=== PATIENT | female | born 1980 | race Caucasian/White ===

== ENCOUNTER → 2019-10-24 11:59 | Outpatient (BNVA) | payer BC, SELFPAY | PROVIDERS: Visit Provider Nurse Practitioner Women's Health | DX: Z39.2 Encounter for routine postpartum follow-up (principal); Z30.011 Encounter for initial prescription of contraceptive pills; O24.429 Gestational diabetes mellitus in childbirth, unspecified control | CPT/HCPCS: 36415; 82947 ==

== ENCOUNTER → 2021-01-27 08:02 | Outpatient (BNVA) | payer BC, SELFPAY | PROVIDERS: PCP Nurse Practitioner Family; Visit Provider Obstetrics & Gynecology | DX: N93.9 Abnormal uterine and vaginal bleeding, unspecified (principal); O24.919 Unspecified diabetes mellitus in pregnancy, unspecified trimester; Z30.9 Encounter for contraceptive management, unspecified; Z80.0 Family history of malignant neoplasm of digestive organs | CPT/HCPCS: 80061; 83036 ==

== ENCOUNTER → 2021-03-12 09:05 | Outpatient (BNVA) | payer BC, SELFPAY | PROVIDERS: PCP Nurse Practitioner Family; Visit Provider Surgery | DX: Z11.52 Encounter for screening for COVID-19 (principal); Z20.822 Contact with and (suspected) exposure to COVID-19; Z01.812 Encounter for preprocedural laboratory examination | CPT/HCPCS: 87635 ==

== ENCOUNTER 2021-03-18 09:16 | Day surgery (SDC) | payer BC, SELFPAY ==
[2021-03-16 15:30] VITALS: BMI 29.7
--- NOTE | 2021-03-18 09:48 | P.ANESASSM_ITS ---
Pre-Anesthetic Assessment Pre-Anesthetic Assessment: Height/Weight: Height 1.7 m Weight 86.183 kg Proposed Procedure: Operation Date: 03/18/21 10:45 Proposed Procedures p Colonoscopy 26445 z80.0(Not Applicable) - Marcelo Pollack MD Was Beta Emelina taken within 24 hours: N/A Was Clonidine taken within 24 hours: N/A Social: Social History: No alcohol and No tobacco Exam: Pre-Anes Outpt Exam: alert, oriented x 3, clear to auscultation bilaterally and regular rate & rhythm Airway: Submandibular: WNL Cervical ROM: WNL MP: 2 Dentition: Full History/ROS: No significant history except as noted Anesthetic Plan: ASA status: 1 Anesthesia: MAC Risk of > 500 ml blood loss (7ml/kg in children): No PFSH Anesthesia PFSH: Surgical History S/P appendectomy Laparoscopic appendectomy performed by Dr. Pollack on 08/31/2017 at [facility] S/P section 09/06/2019---Primary LTCS. Diagnosis: Cephalopelvic disproportion with contracted inlet. Performed by Dr. Hemanth Rice at [facility] in [place], [place]. Confirmed low transverse incision with 2 layer closure. S/P exploratory laparotomy 2005---Scope procedure converted to open due to ovarian cyst-- and had bleeding She underwent an exploratory laparotomy via a midline infraumbilical vertical incision. She was told that she had a bleeding ovarian cyst and that the cyst was removed. She does not know any other details of surgery. This was done at [facility] in [place]. Family History Grandfather Colon cancer maternal Mother Colon cancer diagnosed at age 45 Grandmother Hypertension maternal Heart disease maternal Diabetes maternal Denies family history of Ovarian cancer Hyperlipidemia Breast cancer Uterine cancer Thyroid condition Stroke Social History Smoking and tobacco status: former smoker Alcohol intake: current Data Anesthesia Cardiac Studies: No Data to Display
[2021-03-18 10:18] VITALS: BP 124/90; PULSE 89; RESP 18; TEMP 37.2; O2SAT 97
[2021-03-18] MEDS: sodium chloride 0.9% 1,000 ML 30 ML IV (10:37)
--- NOTE | 2021-03-18 11:31 | W.PM.OPSUD ---
Surgery/Procedure H&P Update DATE OF PROCEDURE: March 18, 2021 DATE H&P PERFORMED: 02/19/21 H&P UPDATE INFORMATION: I have reviewed H&P completed within last 30 days, I have examined patient prior to procedure and No changes to prior documentation PREOP DIAGNOSIS: screening colonoscopy PLANNED PROCEDURE: Operation Date: 03/18/21 10:45 Proposed Procedures p Colonoscopy 98651 z80.0(Not Applicable) - Marcelo Pollack MD
[2021-03-18 11:58] VITALS: BP 121/94; PULSE 95; RESP 18; TEMP 36.6; O2SAT 98
[2021-03-18 12:11] VITALS: BP 118/86; PULSE 87; RESP 18; TEMP 36.6; O2SAT 96
--- NOTE | 2021-03-18 14:51 | ANE.PACU2 ---
Inpatient post-anesthesia follow up: Airway intact: Yes Vital signs: Temperature 97.9 F Pulse Rate 87 Respiratory Rate 18 Blood Pressure 118/86 Pulse Oximetry 96 Oxygen Delivery Me thod Room Air Oxygen Flow Rate Fraction of Inspir ed Oxygen Hydration adequate: Yes Nausea and vomiting: No Pain level: 1 Mental status: Baseline
== END 2021-03-18 12:20 | disposition home or self-care (01) ==
PROVIDERS: PCP Nurse Practitioner Family; Visit Provider Surgery
PROC: 0DJD8ZZ Inspection of Lower Intestinal Tract, Via Natural or Artificial Opening Endoscopic (ICD-10-PCS; CPT 45378; principal; 2021-03-18 10:45)
DX: Z12.11 Encounter for screening for malignant neoplasm of colon (principal); Z87.891 Personal history of nicotine dependence; Z80.0 Family history of malignant neoplasm of digestive organs
CPT/HCPCS: 45378; 96360; 96361; J2704; J7030

== ENCOUNTER → 2022-09-05 13:27 | Outpatient (BNVA) | payer BC, SELFPAY | PROVIDERS: PCP Nurse Practitioner Family; Visit Provider Nurse Practitioner Family | DX: R05.9 Cough, unspecified (principal) | CPT/HCPCS: 87400 ==

== ENCOUNTER → 2023-01-25 10:25 | Outpatient (BNVA) | payer OTHER, SELFPAY | PROVIDERS: PCP Family Medicine; Visit Provider Family Medicine | DX: K21.9 Gastro-esophageal reflux disease without esophagitis (principal); Z76.89 Persons encountering health services in other specified circumstances; Z86.32 Personal history of gestational diabetes | CPT/HCPCS: 80053; 80061; 83036; 84443; 85025 ==

== ENCOUNTER 2023-03-03 08:54 | Outpatient (CLI) | payer OTHER, SELFPAY ==
--- NOTE | 2023-03-03 09:16 | MM_ITS ---
WS: [id number] SCREENING DIGITAL TOMOSYNTHESIS MAMMOGRAM WITH CAD HISTORY: Z12.39 - Encounter for other screening for malignant neoplasm... COMPARISON: None available. Bilateral CC and MLO with tomosynthesis views submitted. Synthetic mammography reviewed. Computer aid ed detection analyzed. Breast composition: There are scattered areas of fibroglandular density. No suspicious masses, microc alcifications or architectural distortion. MM/[place] [id number] IMPRESSION: BI-RADS: 1-Negative FOLLOW UP: 1 Year Follow-up
== END 2023-03-03 08:55 | disposition home or self-care (01) ==
PROVIDERS: PCP Family Medicine; Visit Provider Nurse Practitioner Women's Health
DX: Z12.31 Encounter for screening mammogram for malignant neoplasm of breast (principal)
CPT/HCPCS: 77063; 77067

== ENCOUNTER 2023-12-23 18:32 | Emergency (ER) | payer OTHER, SELFPAY ==
[2023-12-23 18:41] VITALS: BP 179/119; PULSE 90; RESP 17; TEMP 36.6; O2SAT 98
--- NOTE | 2023-12-23 18:47 | XRR_ITS ---
PROCEDURE INFORMATION: Exam: XR Chest Exam date and time: 12/23/2023 6:58 PM Age: 43 years old Clinical indication: Other: Hypertensive; Additional info: HTN TECHNIQUE: Imaging protocol: Radiologic exam of the chest. Views: 1 view. COMPARISON: CT abdomen pelvis w con* [id number] 08/30/2017 11:54 PM FINDINGS: Lungs: Unremarkable. No consolidation. Pleural spaces: Unremarkable. No pleural effusion. No pneumothorax. Heart/Mediastinum: Unremarkable. No cardiomegaly. Bones/joints: Unremarkable. XR/XR chest 1V portable [id number] IMPRESSION: No acute findings.
--- NOTE | 2023-12-23 18:47 | ECG_ITS ---
[facility] Test Date: 2023-12-23 Pat Name: Deborah Brasher Department: Room: Gender: Female Assistant Case Manager: : 1980 Requested By: Shanti Harrington Order Number: [id number] Rodolfo MD: Johan Whitfield M.D. Measurements Intervals [place] Rate: 82 P: 45 CT: 153 QRS: 40 QRSD: 89 T: 45 QT: 335 QTc: 392 Interpretive Statements SINUS RHYTHM No previous ECG available for comparison Electronically Signed On 12-24-2023 10:23:48 CDT by Johan Whitfield M.D. [id number]
--- NOTE | 2023-12-23 18:51 | ED_ITS ---
HPI - General Adult 2 General: Chief complaint: General Medical Stated complaint: High BP Time Seen by Provider: 12/23/23 18:46 Source: patient Mode of arrival: ambulatory Limitations: no limitations History of Present Illness: 43-year-old female states she has been h aving hypertension for the last 3 to 4 days and became very stressed about it she is seen yesterday at urgent care started on HCTZ but states her blood pressure been running in the 170s today she has an appointment with her PCP next week she denies any headache or any chest pain currently. No previous history of high blood pressure PFS ED 2 PFSH: Medical History GERD (gastroesophageal reflux disease) On medication No pertinent past medical history Denies diabetes, asthma, hypertension, seizures, DVT/PE PCP: Dr. aMgaña Surgical History Status post colonoscopy (03/18/21) normal S/P appendectomy Laparoscopic appendectomy performed by Dr. Pollack on 08/31/2017 at [facility] S/P exploratory laparotomy 2005---Scope procedure converted to open due to ovarian cyst-- and had bleeding She underwent an exploratory laparotomy via a midline infraumbilical vertical incision. She was told that she had a bleeding ovarian cyst and that the cyst was removed. She does not know any other details of surgery. This was done at [facility]. S/P section 09/06/2019---Primary LTCS. Diagnosis: Cephalopelvic disproportion with contracted inlet. Performed by Dr. Hemanth Rice at [facility] in [place], [place]. Confirmed low transverse incision with 2 layer closure. Family History Grandfather Colon cancer maternal, age at diagnosis unknown Mother Colon cancer diagnosed at age 45 Grandmother Hypertension maternal Heart disease maternal Diabetes maternal Stroke maternal Denies family history of Ovarian cancer Hyperlipidemia Breast cancer Uterine cancer Thyroid disease Social History Smoking and tobacco/nicotine status: former use of tobacco/nicotine Second hand smoke exposure: No Alcohol intake: current Alcohol intake frequency: holidays/special occasions only Substance/Drug Use: never Adopted: No Caregiver/support person: No Lives independently: Yes service: No Current occupational status: employed Current occupation: [employer] Current occupational exposures/hazards: No Pets and animals: No Sexually active: Yes Do you think of yourself as: Straight/Heterosexual Current gender identity: Female Physical Exam 2 Const: COMMON NORMALS: no acute distress, patient oriented x3 and healthy appearing HENMT: COMMON NORMALS: normocephalic and atraumatic HEAD & SCALP: n ormocephalic and atraumatic Eye: COMMON NORMALS: Equal, round and reactive pupils present and EOMs intact bilaterally PUPIL: Yes Equal, round and reactive pupils present Neck/C-Spine: COMMON NORMALS: full ROM and supple Chest: COMMONS NORMALS: normal inspection of the chest Resp: COMMON NORMALS: normal respiratory effort Cardio: COMMON NORMALS: regular rate, regular rhythm and No murmurs present (Cardio) RATE: regular rate RHYTHM: regular rhythm GI: COMMON NORMALS: Normal to inspection, nondistended, normoactive bowel sounds present, Soft to palpation, non-tender and no masses PALPATION: Yes Soft to palpation Extremity: COMMON NORMALS: normal to inspection and full ROM Neuro: COMMON NORMALS: patient oriented x3, moves all extremities and no focal motor deficits Psych: COMMON NORMALS: mental status grossly normal, Normal thought process present and cooperative THOUGHT PROCESS: Normal thought process present Skin: COMMON NORMALS: no rashes or lesions noted and no wounds GENERAL SKIN EXAM: no rashes or lesions noted Course 2 Vital Signs: Vital signs: Vital Signs Temperature 97.8 F 12/23/23 18:41 Pulse Rate 87 12/23/23 20:38 Respiratory Rate 16 12/23/23 20:38 Blood Pressure 141/97 12/23/23 20:38 Pulse Oximetry 97 12/23/23 20:38 [facility] - General Adult Medical Decision Making Patient presents here with hypertension her blood pressure here is improved we will start her on metoprolol she is follow-up with PCP next week as scheduled return if worsening. Medical Records I reviewed the patient's medical records. Lab Data I reviewed the patient's lab results. 12/23/23 19:06 12/23/23 19:06 Radiology Impressions Chest X-Ray 12/23/23 18:47 IMPRESSION: No acute findings. Laboratory Results WBC 8.97 10^3/uL (3.29-11.43) 12/23/23 19:06 RBC 5.23 10^6/uL (3.85-5.65) 12/23/23 19:06 Hgb 15.30 g/dL (11.27-16.99) 12/23/23 19:06 Hct 46.9 % (36-47) 12/23/23 19:06 MCV 89.7 fl (85-98) 12/23/23 19:06 MCH 29.3 pg (27-33) 12/23/23 19:06 MCHC 32.6 g/dL (30-55) 12/23/23 19:06 RDW 12.6 % (12.1-15.1) 12/23/23 19:06 Plt Count 393 10^3/cmm (157-399) 12/23/23 19:06 MPV 9.5 fL (7.4-10.4) 12/23/23 19:06 Neut % (Auto) 62.7 % 12/23/23 19:06 Lymph % (Auto) 28.0 % 12/23/23 19:06 [place] % (Auto) 7.6 % 12/23/23 19:06 Eos % (Auto) 1.0 % 12/23/23 19:06 Baso % (Auto) 0.6 % 12/23/23 19:06 Neut # (Auto) 5.63 10^3/uL (1.8-7.7) 12/23/23 19:06 Lymph # (Auto) 2.5 10^3/uL (0.8-4.8) 12/23/23 19:06 [place] # (Auto) 0.7 10^3/uL (0.2-0.9) 12/23/23 19:06 Eos # (Auto) 0.1 10^3/uL (0.0-0.8) 12/23/23 19:06 Baso # (Auto) 0.1 10^3/uL (0.0-0.1) 12/23/23 19:06 Nucleated RBC % (auto) 0 % 12/23/23 19:06 Nucleated RBCs # 0.0 /100WBC 12/23/23 19:06 Sodium 135 mmol/L (136-145) L 12/23/23 19:06 Potassium 3.8 mmol/L (3.5-5.1) 12/23/23 19:06 Chloride 98 mmol/L (98-107) 12/23/23 19:06 Carbon Dioxide 23 mmol/L (22-29) 12/23/23 19:06 Anion Gap 17.8 (5-19) 12/23/23 19:06 BUN 11 mg/dL (6-20) 12/23/23 19:06 Creatinine 0.6 mg/dL (0.5-0.9) 12/23/23 19:06 GFR Calculation 110.2 mL/min (90-130) 12/23/23 19:06 Glucose 124 mg/dL (65-115) H 12/23/23 19:06 Calculated Osmolality 281 mOsm/kg (285-295) L 12/23/23 19:06 Calcium 9.8 mg/dL (8.5-10.5) 12/23/23 19:06 Total Bilirubin 0.3 mg/dL (0.15-1.2) 12/23/23 19:06 AST 25 U/L (0-32) 12/23/23 19:06 ALT 30 U/L (0-33) 12/23/23 19:06 Alkaline Phosphatase 88 U/L (35-105) 12/23/23 19:06 Troponin T Baseline < 6 ng/L (0-10) 12/23/23 19:06 Total Protein 8.3 g/dL (6.6-8.7) 12/23/23 19:06 Albumin 4.6 g/dL (3.5-5.2) 12/23/23 19:06 Globulin 3.7 g/dL (1.3-4.6) 12/23/23 19:06 No radiology studies performed this visit EKG Data EKG 1: I personally reviewed and interpreted this EKG as follows: EKG interpretation date: 12/23/23 EKG interpretation time: 18:53 Interpretation: nsr hr [address] or t wave abnormalities qrs 89 qtc 373 Computer generated interpretation: Chest X-Ray 12/23/23 18:47 IMPRESSION: No acute findings. EKG 2: I personally reviewed and interpreted this EKG as follows: EKG interpretation date: 12/23/23 EKG interpretation time: 18:53 Interpretation: nsr hr [address] or t wave abnormalities qrs 89 qtc 373 Computer generated interpretation: Chest X-Ray 12/23/23 18:47 IMPRESSION: No acute findings. Discharge Plan Discharge Patient Disposition: Home Clinical Impression: Hypertension Condition: Stable Prescriptions: New metoprolol succinate 50 mg tablet extended release 24 hr 50 mg PO DAILY Qty: 30 0RF No Action acetaminophen [Tylenol Extra Strength] 500 mg tablet 500 mg PO .THREE TIMES DAILY PRN (Reason: Pain) ibuprofen 200 mg tablet 200 mg PO Q6H PRN (Reason: MOD PAIN) cetirizine [Zyrtec] 10 mg tablet 10 mg PO DAILY norethindrone-e.estradiol-iron [Junel FE 11/04 (28)] 1 mg-20 mcg (21)/75 mg (7) tablet 1 tab PO DAILY Qty: 84 3RF omeprazole 20 mg capsule,delayed release(DR/EC) 20 mg PO DAILY PRN multivitamin Tablet 1 tab PO DAILY fluticasone propionate [Flonase Allergy Relief] 50 mcg/actuation spray,suspension 1 spray intranasal BID Qty: 16 5RF Rx Instructions: administer into each nostril promethazine 25 mg tablet 25 mg PO TID PRN (Reason: nausea and vomiting) Qty: 30 2RF albuterol sulfate [Ventolin HFA] 90 mcg/actuation HFA aerosol inhaler 2 puff inhalation QID Qty: 6.7 0RF hydrochlorothiazide 12.5 mg tablet 12.5 mg PO DAILY Qty: 30 0RF Discharge Orders: Discharge ED (Routine); Ordered 12/23/23 Ordered By: Shanti Harrington Referrals: Ranjeet Salamanca DO [Primary Care Provider] - 4-7 days Discharge Diet: Advance as tolerated Discharge Activity: Resume usual activity Patient Instructions: Hypertension (ED) Coding Level of Care Code ED Windows Security Analyst for Ashley Renteria
[2023-12-23] MEDS: hyDRALAzine 20 mg/mL INJ 1 mL 10 MG IVP (19:08)
[2023-12-23 19:14] LABS: Basophils # 0.1 10^3/uL (0.0-0.1); Basophils % 0.6 %; Eosinophils # 0.1 10^3/uL (0.0-0.8); Hematocrit 46.9 % (36-47); Lymphocytes # 2.5 10^3/uL (0.8-4.8); Mean Corpuscular HGB Conc 32.6 g/dL (30-55); Mean Corpuscular Hemoglobin 29.3 pg (27-33); Mean Corpuscular Volume 89.7 fl (85-98); Mean Platelet Volume 9.5 fL (7.4-10.4); Monocytes # 0.7 10^3/uL (0.2-0.9); Monocytes % 7.6 %; Neutrophils # 5.63 10^3/uL (1.8-7.7); Neutrophils % 62.7 %; Nucleated Red Blood Cells % 0 %; Platelet Count 393 10^3/cmm (157-399); Red Blood Count 5.23 10^6/uL (3.85-5.65); Red Cell Distribution Width 12.6 % (12.1-15.1); White Blood Count 8.97 10^3/uL (3.29-11.43)
[2023-12-23 19:22] VITALS: BP 157/104; PULSE 93; RESP 16; O2SAT 96
[2023-12-23 19:45] LABS: Alanine Aminotransferase 30 U/L (0-33); Albumin Level 4.6 g/dL (3.5-5.2); Alkaline Phosphatase 88 U/L (35-105); Aspartate Amino Transferase 25 U/L (0-32); Blood Urea Nitrogen 11 mg/dL (6-20); Calcium 9.8 mg/dL (8.5-10.5); Carbon Dioxide 23 mmol/L (22-29); Chloride 98 mmol/L (98-107); Creatinine Clr Calc Pharmacy 143.3869; Globulin 3.7 g/dL (1.3-4.6); Glomerular Filtration Rate 110.2 mL/min (90-130); Glucose 124 mg/dL (65-115); Osmolality Calculated 281 mOsm/kg (285-295); Sodium 135 mmol/L (136-145); Total Bilirubin 0.3 mg/dL (0.15-1.2); Total Protein 8.3 g/dL (6.6-8.7)
[2023-12-23 19:47] LABS: Anion Gap 17.8 (5-19); Potassium 3.8 mmol/L (3.5-5.1)
[2023-12-23] MEDS: labetalol 5 mg/mL SDV 20mL 10 MG IVP (19:53)
[2023-12-23 20:11] VITALS: BP 151/115; PULSE 88; RESP 16; O2SAT 97
[2023-12-23 20:38] VITALS: BP 141/97; PULSE 87; RESP 16; O2SAT 97
[2023-12-23 20:43] LABS: Troponin(5th) Baseline < 6 ng/L (0-10)
== END 2023-12-23 21:12 | disposition home or self-care (01) ==
PROVIDERS: Emergency Provider Emergency Medicine; PCP Family Medicine
DX: I10 Essential (primary) hypertension (principal); Z87.891 Personal history of nicotine dependence
CPT/HCPCS: 71045; 80053; 84484; 85025; 93005; 96374; 96375; 99285; J0360; J3490

== ENCOUNTER → 2024-02-02 15:07 | Outpatient (BNVA) | payer OTHER, SELFPAY | PROVIDERS: PCP Family Medicine; Visit Provider Nurse Practitioner Women's Health | DX: Z12.4 Encounter for screening for malignant neoplasm of cervix | CPT/HCPCS: 87624 ==

== ENCOUNTER → 2024-03-15 08:30 | Outpatient (BNVA) | payer OTHER, SELFPAY | PROVIDERS: PCP Family Medicine; Visit Provider Nurse Practitioner Women's Health | DX: Z13.21 Encounter for screening for nutritional disorder (principal); I10 Essential (primary) hypertension; R73.03 Prediabetes; E78.5 Hyperlipidemia, unspecified | CPT/HCPCS: 80061; 82306; 83036 ==

== ENCOUNTER 2024-07-19 08:13 | Outpatient (CLI) | payer OTHER, SELFPAY ==
[2024-07-19 08:36] LABS: Basophils # 0.1 10^3/uL (0.0-0.1); Basophils % 1.7 %; Eosinophils # 0.2 10^3/uL (0.0-0.8); Eosinophils % 4.3 %; Hematocrit 43.6 % (36-47); Lymphocytes % 38.1 %; Mean Corpuscular Hemoglobin 29.4 pg (27-33); Mean Platelet Volume 9.1 fL (7.4-10.4); Monocytes # 0.4 10^3/uL (0.2-0.9); Monocytes % 7.9 %; Neutrophils # 2.52 10^3/uL (1.8-7.7); Neutrophils % 47.6 %; Nucleated Red Blood Cells % 0 %; Platelet Count 387 10^3/cmm (157-399); Red Cell Distribution Width 12.1 % (12.1-15.1)
[2024-07-19 08:50] LABS: Erythrocyte Sedimentation Rate 9 mm/hr (0-15)
[2024-07-22 15:44] LABS: Anti-Nuclear Antibody Screen NEGATIVE (NEGATIVE)
[2024-07-23 10:13] LABS: ANCA Screen NEGATIVE (NEGATIVE)
== END 2024-07-19 08:14 | disposition home or self-care (01) ==
LOC: LAB 08:15
PROVIDERS: PCP Family Medicine; Visit Provider Family Medicine
DX: R23.3 Spontaneous ecchymoses (principal)
CPT/HCPCS: 36415; 85025; 85651; 86036; 86038; 86140; 86431

== ENCOUNTER → 2024-09-20 11:25 | Outpatient (BNVA) | payer OTHER, SELFPAY | PROVIDERS: PCP Family Medicine | DX: R05.9 Cough, unspecified (principal) | CPT/HCPCS: 87400; 87426 ==

== ENCOUNTER 2025-08-20 10:46 | Outpatient (CLI) | payer OTHER, SELFPAY ==
--- NOTE | 2025-08-20 10:49 | MM_ITS ---
WS: [id number] BILATERAL SCREENING DIGITAL TOMOSYNTHESIS MAMMOGRAM WITH CAD HISTORY: SCREENING COMPARISON: 03/03/2023 Bilateral CC and MLO views with tomosynthesis and synthetic mammography submitted. Computer aided detection analyzed. Breast composition: There are scattered areas of fibroglandular density. No suspicious masses, microcalcifications or architectural distortion. MM/MM scr BI tomosynthesis [id number] IMPRESSION: BI-RADS: 1 - Negative. FOLLOW UP: 1 Year Follow-up
== END 2025-08-20 10:47 | disposition home or self-care (01) ==
LOC: RAD 10:47
PROVIDERS: PCP Family Medicine; Visit Provider Family Medicine
DX: Z12.31 Encounter for screening mammogram for malignant neoplasm of breast (principal); R92.323 Mammographic fibroglandular density, bilateral breasts
CPT/HCPCS: 77063; 77067

== ENCOUNTER 2025-08-25 08:23 | Day surgery (SDC) | payer OTHER, SELFPAY ==
--- NOTE | 2025-08-25 09:14 | ANES.PREANE2 ---
Pre-Anesthetic Assessment Height/Weight: Height 1.7 m Operation Date: 08/25/25 10:00 Proposed Procedures p Colonoscopy 37273 G0121 Z12.11(Not Applicable) - Alexander Chandler MD Familial anesthetic complications: None Was Beta Emelina taken within 24 hours: N/A Was Clonidine taken within 24 hours: N/A Last intake: > 8 hrs Social No alcohol and No tobacco Exam alert, oriented x 3, clear to auscultation bilaterally and regular rate & rhythm Airway Mallampati: Class I Dentition: chipped and other (missing) CV/HEM Hypertension GI Gastroesophageal Reflux Disease Metabolic Diabetes Mellitus Anesthetic Plan ASA status: 3 Anesthesia: MAC Risk of > 500 ml blood loss (7ml/kg in children): No Medications/Allergies Home Medications ?Medication ?Instructions ?Recorded ?Confirmed ?Last Taken ?Type acetaminophen 500 mg tablet 500 mg PO .THREE TIMES DAILY PRN 10/24/19 08/20/25 08/24/25 History (Tylenol Extra Strength) Pain ibuprofen 200 mg tablet 200 mg PO Q6H PRN MOD PAIN 10/24/19 08/20/25 08/24/25 History multivitamin 1 tab PO DAILY 11/29/21 08/20/25 08/24/25 History cetirizine 10 mg tablet (Zyrtec) 10 mg PO DAILY PRN allergy 10/10/24 08/20/25 08/25/25 Rx symptoms #90 tabs norethindrone 1 mg-ethinyl See Rx Instructions .Route 10/10/24 08/20/25 08/25/25 Rx estradiol 20 mcg (21)-iron 75 mg .COMPLEX #84 tabs (7) tablet (Martin Fe 11/04 ()) omeprazole 20 mg capsule,delayed 20 mg PO DAILY PRN GERD #90 caps 10/10/24 08/20/25 08/24/25 Rx release valsartan 80 mg tablet 80 mg PO DAILY 90 days #90 tabs 10/14/24 08/20/25 08/25/25 Rx atorvastatin 40 mg tablet (Lipitor) 40 mg PO DAILY 08/13/25 08/20/25 08/24/25 History ondansetron 8 mg disintegrating 8 mg PO Q8H PRN nausea and 08/13/25 08/20/25 08/24/25 Rx tablet vomiting #3 tabs metformin 500 mg tablet 500 mg PO BID 08/22/25 08/22/25 08/24/25 History Allergies Allergy/AdvReac Type Severity Reaction Status Date / Time Penicillins Allergy ALGY-Hives/RASH-can Verified 08/20/25 10:36 take kefle sulfamethoxazole (From Allergy ALGY-Rash Verified 08/20/25 10:36 Bactrim) tramadol Allergy ADR-Itching- Verified 08/20/25 10:36 ALL OVER trimethoprim (From Bactrim) Allergy ALGY-Rash Verified 08/20/25 10:36 [facility] Anesthesia Medical History History of gestational diabetes GERD (gastroesophageal reflux disease) On medication No pertinent past medical history Denies diabetes, asthma, hypertension, seizures, DVT/PE PCP: Dr. Salamanca Surgical History Status post colonoscopy (03/18/21) normal S/P appendectomy Laparoscopic appendectomy performed by Dr. Pollack on 08/31/2017 at [facility] S/P exploratory laparotomy 2006---Scope procedure converted to open due to ovarian cyst-- and had bleeding She underwent an exploratory laparotomy via a midline infraumbilical vertical incision. She was told that she had a bleeding ovarian cyst and that the cyst was removed. She does not know any other details of surgery. This was done at [facility] in [place]. S/P section 09/06/2019---Primary LTCS. Diagnosis: Cephalopelvic disproportion with contracted inlet. Performed by Dr. Hemanth Rice at [facility] in [place], [place]. Confirmed low transverse incision with 2 layer closure. Family History Grandfather Colon cancer maternal, age at diagnosis unknown Mother Colon cancer diagnosed at age 45 Grandmother Hypertension maternal Heart disease maternal Diabetes maternal Stroke maternal Denies family history of Ovarian cancer Hyperlipidemia Breast cancer Uterine cancer Thyroid disease Social History Smoking and tobacco/nicotine status: never used tobacco/nicotine
[2025-08-25 09:16] LABS: OR HCG Qualitative Urine Negative (Negative)
[2025-08-25 09:17] VITALS: BP 123/101; PULSE 90; RESP 18; TEMP 36.7; O2SAT 98
--- NOTE | 2025-08-25 09:20 | W.PM.OPSUD ---
Surgery/Procedure H&P Update DATE OF PROCEDURE: August 25, 2025 DATE H&P PERFORMED: 08/13/25 H&P UPDATE INFORMATION: I have reviewed H&P completed within last 30 days, I have examined patient prior to procedure, No changes to prior documentation and Risks and benefits of the procedure reviewed PLANNED PROCEDURE: Operation Date: 08/25/25 10:00 Proposed Procedures p Colonoscopy 90041 G0121 Z12.11(Not Applicable) - Alexander Chandler MD
[2025-08-25 09:51] VITALS: BP 105/82; RESP 97; TEMP 36.8; O2SAT 99
--- NOTE | 2025-08-25 10:15 | ANE.PACU2 ---
Inpatient post-anesthesia follow up: Airway intact: Yes Vital signs: Temperature 98.2 F Pulse Rate 90 Respiratory Rate 97 Blood Pressure 105/82 Pulse Oximetry 99 Oxygen Delivery Me thod Room Air Oxygen Flow Rate Fraction of Inspir ed Oxygen Hydration adequate: Yes Nausea and vomiting: No Pain level: 1 Mental status: Baseline
== END 2025-08-25 10:15 | disposition home or self-care (01) ==
PROVIDERS: Anesthesiology; PCP Family Medicine; Visit Provider Student in an Organized Health Care Education/Training Program
PROC: 0DJD8ZZ Inspection of Lower Intestinal Tract, Via Natural or Artificial Opening Endoscopic (ICD-10-PCS; CPT 45378; principal; 2025-08-25 10:00)
DX: Z12.11 Encounter for screening for malignant neoplasm of colon (principal); I10 Essential (primary) hypertension; K21.9 Gastro-esophageal reflux disease without esophagitis; E11.9 Type 2 diabetes mellitus without complications; Z79.84 Long term (current) use of oral hypoglycemic drugs; Z80.0 Family history of malignant neoplasm of digestive organs
CPT/HCPCS: 36416; 45378; 81025; 82962; J2704; J7030